=== PATIENT | male | born 1990 | race Caucasian/White ===

== ENCOUNTER 2018-06-05 10:19 | Emergency (ER) | payer SELFPAY ==
--- NOTE | 2018-06-05 11:02 | CT ---
CT OF BRAIN PERFORMED WITHOUT CONTRAST ENHANCEMENT: Date: 06/05/18 HISTORY: Seizure. FINDINGS: The ventricular and cisternal system is within normal limits. There are no signs of intracerebral hem orrhage or extra-axial fluid collections. The mastoid air cells are clear. The visualized portions of the right maxillary sinus is opacified. IMPRESSION: No acute intracranial abnormalities. POS: [facility]
[2018-06-05 11:08] LABS: #Basophils 0.1 thou/uL (0.0-0.2); #Eosinphils 0.2 thou/uL (0.0-0.7); #Lymphocytes 1.9 thou/uL (1.20-3.40); #Monocytes 0.7 thou/uL (0.11-0.59); #Neutrophils 7.2 thou/uL (1.40-6.50); %Basophils 0.5 % (0.0-1.0); %Eosinophils 2.4 % (0.0-10.0); %Monocytes 7.2 % (0.0-10.0); %Neutrophils 70.9 % (42.0-75.0); Hemoglobin 16.3 g/dL (14.0-18.0); Mean Corpuscular HGB CONC 34.7 g/dL (32.0-36.0); Mean Corpuscular Hemoglobin 31.7 pg (27.0-31.0); Mean Corpuscular Volume 91.4 fL (78.0-98.0); Mean Platelet Volume 5.9 fL (7.4-10.4); Platelet Count 256 thou/uL (130-400); RBC Distribution Width 11.4 % (11.5-14.5); Red Blood Cell (RBC) Count 5.14 mill/uL (4.70-6.10); White Blood Cell (WBC) Count 10.1 thou/uL (4.8-10.8)
[2018-06-05 11:25] LABS: Carbamazepine-Tegretol 9.6 ug/mL (4.0-12.0)
[2018-06-05 11:26] LABS: ALT (SGPT) 28 U/L (8-55); AST (SGOT) 17 U/L (5-34); Albumin 4.2 g/dL (3.5-5.0); Alkaline Phosphatase 65 U/L (40-150); Anion Gap 10 mmol/L (10-20); BUN (Urea Nitrogen) 10 mg/dL (8.9-20.6); Bilirubin, Total 0.4 mg/dL (0.2-1.2); Calc. Creatinine Clearance 0 mL/min (70-130); Carbon Dioxide 28 mmol/L (22-29); Chloride 104 mmol/L (98-107); Estimated GFR-MDRD Greater than 90; Globulin 2.7 g/dL (2.4-3.5); Glucose 88 mg/dL (70-105); Protein, Total 6.9 g/dL (6.0-8.3); Sodium 138 mmol/L (136-145)
[2018-06-05 12:05] LABS: Bilirubin Negative (Negative); Blood, Urine Negative (Negative); Clarity CLEAR (Clear); Glucose, Urine (Dipstick) Negative (Negative); Leukocyte Negative (Negative); Nitrite Negative (Negative); Protein, Urine (Dipstick) Negative (Neg-Trace); Specific Gravity, Urine 1.017 (1.002-1.036); Urobilinogen 0.2 mg/dL (0.2-1.0); pH, Urine 6.5 (5.0-9.0)
--- NOTE | 2018-06-05 12:18 | RAD ---
THORACIC SPINE 3 VIEWS: Date: 06/05/18 HISTORY: Seizure 7 days ago. Seizure yesterday and today. Pain. FINDINGS: AP, lateral, and a swimmer's view of the thoracic spine submitted for interpretation. Thoracic spine vertebral body height is maintained. No fracture. Minimal end plate osteophyte formation. IMPRESSION: No fracture. POS: [facility]
--- NOTE | 2018-06-05 12:18 | RAD ---
LUMBAR SPINE SERIES 3 VIEWS: Date: 06/05/17 HISTORY: Back pain, status post seizure. FINDINGS: Vertebral bodies are normal in height. Disc spaces all appear well preserved. Pedicles are intact. No spondylolisthesis. IMPRESSION: No evidence of any acute injury. POS: [facility]
== END 2018-06-05 12:31 | disposition home or self-care (01) ==
LOC: ERS 10:19
DX: R56.9 Unspecified convulsions (principal); M54.5 Low back pain; I10 Essential (primary) hypertension; F17.210 Nicotine dependence, cigarettes, uncomplicated; Z79.899 Other long term (current) drug therapy; Z71.6 Tobacco abuse counseling
CPT/HCPCS: 36415; 70450; 72072; 72100; 80053; 80156; 81003; 85025; 94760; 99406

== ENCOUNTER 2018-10-16 01:29 | Emergency (ER) | payer SELFPAY ==
[2018-10-16 01:49] LABS: #Basophils 0.1 thou/uL (0.0-0.2); #Eosinphils 0.3 thou/uL (0.0-0.7); #Lymphocytes 2.3 thou/uL (1.20-3.40); #Monocytes 0.5 thou/uL (0.11-0.59); #Neutrophils 2.1 thou/uL (1.40-6.50); %Basophils 1.1 % (0.0-1.0); %Eosinophils 5.2 % (0.0-10.0); %Lymphocytes 44.9 % (21.0-51.0); %Monocytes 8.8 % (0.0-10.0); Hemoglobin 15.6 g/dL (14.0-18.0); Mean Corpuscular HGB CONC 35.3 g/dL (32.0-36.0); Mean Corpuscular Hemoglobin 31.4 pg (27.0-31.0); Mean Platelet Volume 6.2 fL (7.4-10.4); Platelet Count 222 thou/uL (130-400); RBC Distribution Width 12.4 % (11.5-14.5); Red Blood Cell (RBC) Count 4.97 mill/uL (4.70-6.10); White Blood Cell (WBC) Count 5.2 thou/uL (4.8-10.8)
[2018-10-16] MEDS ORDERED: Lorazepam 2 MG/ML VIAL ONE (02:03)
[2018-10-16 02:14] LABS: Bilirubin Negative (Negative); Blood, Urine Negative (Negative); Clarity Clear (Clear); Glucose, Urine (Dipstick) Normal (Negative); Leukocyte Negative Leu/uL (Negative); Nitrite Negative (Negative); Protein, Urine (Dipstick) Negative (Neg-Trace); Urobilinogen Normal mg/dL (Less than 2)
[2018-10-16 02:25] LABS: ALT (SGPT) 62 U/L (8-55); AST (SGOT) 40 U/L (5-34); Albumin 4.3 g/dL (3.5-5.0); Alkaline Phosphatase 67 U/L (40-150); Anion Gap 15 mmol/L (10-20); BUN (Urea Nitrogen) 8 mg/dL (8.9-20.6); Bilirubin, Total 0.4 mg/dL (0.2-1.2); CK (CPK) 132 U/L (30-200); Calc. Creatinine Clearance 0 mL/min (70-130); Calcium 9.3 mg/dL (7.8-10.44); Carbon Dioxide 23 mmol/L (22-29); Chloride 105 mmol/L (98-107); Estimated GFR-MDRD Greater than 90; Globulin 3.1 g/dL (2.4-3.5); Glucose 99 mg/dL (70-105); Potassium 4.2 mmol/L (3.5-5.1); Protein, Total 7.4 g/dL (6.0-8.3); Sodium 139 mmol/L (136-145)
[2018-10-16] MEDS ORDERED: Ketorolac Tromethamine 30 MG/ML VIAL ONE (02:45)
== END 2018-10-16 03:53 | disposition home or self-care (01) ==
LOC: ERS 01:29
DX: R56.9 Unspecified convulsions (principal); F17.210 Nicotine dependence, cigarettes, uncomplicated
CPT/HCPCS: 36415; 80053; 80156; 81003; 82550; 84146; 85025; 93005; 96361; 96374; 96375; J1885; J2060

== ENCOUNTER 2019-01-21 11:07 | Emergency (ER) | payer SELFPAY ==
[2019-01-21] MEDS ORDERED: Ketorolac Tromethamine 30 MG/ML VIAL ONE (11:29)
[2019-01-21 11:42] LABS: #Eosinphils 0.2 thou/uL (0.0-0.7); #Lymphocytes 2.1 thou/uL (1.20-3.40); #Monocytes 0.6 thou/uL (0.11-0.59); #Neutrophils 3.9 thou/uL (1.40-6.50); %Basophils 0.5 % (0.0-1.0); %Eosinophils 2.3 % (0.0-10.0); %Monocytes 8.2 % (0.0-10.0); Hemoglobin 16.7 g/dL (14.0-18.0); Mean Corpuscular HGB CONC 33.8 g/dL (32.0-36.0); Mean Corpuscular Hemoglobin 31.4 pg (27.0-31.0); Mean Corpuscular Volume 93.2 fL (78.0-98.0); Mean Platelet Volume 6.2 fL (7.4-10.4); Platelet Count 229 thou/uL (130-400); RBC Distribution Width 11.9 % (11.5-14.5); White Blood Cell (WBC) Count 6.8 thou/uL (4.8-10.8)
[2019-01-21] MEDS ORDERED: carBAMazepine 200 MG TAB PO SCH (12:00)
[2019-01-21 12:07] LABS: Carbamazepine-Tegretol 2.8 ug/mL (4.0-12.0)
[2019-01-21] MEDS ORDERED: Lorazepam 2 MG/ML VIAL ONE (12:07)
[2019-01-21 12:14] LABS: ALT (SGPT) 36 U/L (8-55); AST (SGOT) 21 U/L (5-34); Albumin 4.3 g/dL (3.5-5.0); Alkaline Phosphatase 64 U/L (40-110); Anion Gap 16 mmol/L (10-20); BUN (Urea Nitrogen) 10 mg/dL (8.9-20.6); Bilirubin, Total 0.4 mg/dL (0.2-1.2); CK (CPK) 112 U/L (30-200); Calc. Creatinine Clearance 0 mL/min (70-130); Calcium 9.3 mg/dL (7.8-10.44); Carbon Dioxide 25 mmol/L (22-29); Chloride 105 mmol/L (98-107); Estimated GFR-MDRD 76; Globulin 2.5 g/dL (2.4-3.5); Glucose 108 mg/dL (70-105); Potassium 4.5 mmol/L (3.5-5.1); Protein, Total 6.8 g/dL (6.0-8.3); Sodium 141 mmol/L (136-145)
--- NOTE | 2019-01-21 13:04 | RAD ---
XR Hand Rt 3 View STANDARD HISTORY: Second right metacarpal pain FINDINGS: No bony abnormalities identified.
== END 2019-01-21 13:41 | disposition home or self-care (01) ==
LOC: ERS 11:07
DX: R56.9 Unspecified convulsions (principal); F17.210 Nicotine dependence, cigarettes, uncomplicated
CPT/HCPCS: 36415; 80053; 80156; 82550; 85025; 93005; 96374; 96375; J1885; J2060

== ENCOUNTER 2019-01-25 20:25 | Emergency (ER) | payer SELFPAY ==
[2019-01-25 21:56] LABS: Anion Gap 18 mmol/L (10-20); BUN (Urea Nitrogen) 7 mg/dL (8.9-20.6); Calc. Creatinine Clearance 0 mL/min (70-130); Calcium 9.3 mg/dL (7.8-10.44); Carbon Dioxide 24 mmol/L (22-29); Chloride 101 mmol/L (98-107); Estimated GFR-MDRD Greater than 90; Glucose 85 mg/dL (70-105); Potassium 3.5 mmol/L (3.5-5.1); Sodium 139 mmol/L (136-145)
[2019-01-25] MEDS ORDERED: Ibuprofen 800 MG TAB ONE (21:57)
[2019-01-25 22:02] LABS: Acetaminophen Less than 6.0 mcg/mL (10.0-30.0); Alcohol 24 mg/dL (Less than 10); Salicylate Less than 8.0 mg/dL (15.0-30.0)
[2019-01-25 22:03] LABS: #Eosinphils 0.1 thou/uL (0.0-0.7); #Lymphocytes 2.4 thou/uL (1.20-3.40); #Monocytes 0.6 thou/uL (0.11-0.59); #Neutrophils 4.5 thou/uL (1.40-6.50); %Basophils 0.4 % (0.0-1.0); %Eosinophils 0.7 % (0.0-10.0); %Lymphocytes 31.5 % (21.0-51.0); %Monocytes 8.2 % (0.0-10.0); %Neutrophils 59.3 % (42.0-75.0); Hemoglobin 16.4 g/dL (14.0-18.0); Mean Corpuscular HGB CONC 33.3 g/dL (32.0-36.0); Mean Corpuscular Volume 93.1 fL (78.0-98.0); Mean Platelet Volume 6.5 fL (7.4-10.4); Platelet Count 246 thou/uL (130-400); RBC Distribution Width 11.7 % (11.5-14.5); Red Blood Cell (RBC) Count 5.29 mill/uL (4.70-6.10); White Blood Cell (WBC) Count 7.5 thou/uL (4.8-10.8)
[2019-01-25 22:06] LABS: Bilirubin Negative (Negative); Blood, Urine Negative (Negative); Clarity Clear (Clear); Glucose, Urine (Dipstick) Normal (Negative); Leukocyte Negative Leu/uL (Negative); Nitrite Negative (Negative); Protein, Urine (Dipstick) Negative (Neg-Trace); Urobilinogen Normal mg/dL (Less than 2)
[2019-01-25 22:17] LABS: Amphetamine Not Detected (NotDetected); Barbiturates Screen Not Detected (NotDetected); Benzodiazepine Screen Not Detected (NotDetected); Cocaine Metabolite Screen Detected (NotDetected); Medtox Control Line Valid? VALID (VALID); Medtox Reader # READER 4; Methadone Not Detected (NotDetected); Methamphetamine Not Detected (NotDetected); Opiate Screen Not Detected (NotDetected); Oxycodone Screen Not Detected (NotDetected); Phencyclidine (PCP) Not Detected (NotDetected); THC/Cannabinoid Screen Not Detected (NotDetected); Tricyclic Screen Not Detected (NotDetected)
[2019-01-25 22:45] LABS: ALT (SGPT) 42 U/L (8-55); AST (SGOT) 30 U/L (5-34); Albumin 4.1 g/dL (3.5-5.0); Alkaline Phosphatase 60 U/L (40-110); Anion Gap 14 mmol/L (10-20); BUN (Urea Nitrogen) 6 mg/dL (8.9-20.6); Bilirubin, Total 0.6 mg/dL (0.2-1.2); Calc. Creatinine Clearance 0 mL/min (70-130); Calcium 8.5 mg/dL (7.8-10.44); Carbon Dioxide 28 mmol/L (22-29); Chloride 103 mmol/L (98-107); Estimated GFR-MDRD Greater than 90; Globulin 2.3 g/dL (2.4-3.5); Glucose 83 mg/dL (70-105); Potassium 3.5 mmol/L (3.5-5.1); Protein, Total 6.4 g/dL (6.0-8.3); Sodium 141 mmol/L (136-145)
[2019-01-25 22:46] LABS: Carbamazepine-Tegretol 5.5 ug/mL (4.0-12.0)
[2019-01-26] MEDS ORDERED: carBAMazepine 200 MG TAB PO SCH ×2 (00:30→09:00)
== END 2019-01-26 05:59 ==
LOC: ERS 20:25
DX: F14.10 Cocaine abuse, uncomplicated (principal); R45.851 Suicidal ideations; R56.9 Unspecified convulsions; F17.210 Nicotine dependence, cigarettes, uncomplicated; Z79.899 Other long term (current) drug therapy
CPT/HCPCS: 36415; 80048; 80156; 80306; 80307; 81003; 84146; 85025; 93005; 96360

== ENCOUNTER 2019-04-04 22:58 | Emergency (ER) | payer SELFPAY ==
[2019-04-04 23:27] LABS: #Basophils 0.1 thou/uL (0.0-0.2); #Lymphocytes 2.1 thou/uL (1.20-3.40); #Monocytes 0.4 thou/uL (0.11-0.59); %Basophils 1.2 % (0.0-1.0); %Eosinophils 0.9 % (0.0-10.0); %Lymphocytes 38.2 % (21.0-51.0); %Monocytes 6.4 % (0.0-10.0); %Neutrophils 53.4 % (42.0-75.0); Hemoglobin 17.6 g/dL (14.0-18.0); Mean Corpuscular HGB CONC 34.7 g/dL (32.0-36.0); Mean Corpuscular Hemoglobin 32.2 pg (27.0-31.0); Mean Corpuscular Volume 92.6 fL (78.0-98.0); Mean Platelet Volume 6.2 fL (7.4-10.4); Platelet Count 270 thou/uL (130-400); RBC Distribution Width 11.3 % (11.5-14.5); Red Blood Cell (RBC) Count 5.46 mill/uL (4.70-6.10); White Blood Cell (WBC) Count 5.5 thou/uL (4.8-10.8)
[2019-04-04 23:46] LABS: ALT (SGPT) 44 U/L (8-55); AST (SGOT) 27 U/L (5-34); Acetaminophen Less than 6.0 mcg/mL (10.0-30.0); Albumin 4.4 g/dL (3.5-5.0); Alcohol 113 mg/dL (Less than 10); Alkaline Phosphatase 84 U/L (40-110); Anion Gap 16 mmol/L (10-20); BUN (Urea Nitrogen) 13 mg/dL (8.9-20.6); Calc. Creatinine Clearance 0 mL/min (70-130); Calcium 8.8 mg/dL (7.8-10.44); Carbon Dioxide 27 mmol/L (22-29); Chloride 100 mmol/L (98-107); Estimated GFR-MDRD 84; Globulin 3.1 g/dL (2.4-3.5); Glucose 114 mg/dL (70-105); Protein, Total 7.5 g/dL (6.0-8.3); Salicylate Less than 8.0 mg/dL (15.0-30.0); Sodium 139 mmol/L (136-145)
[2019-04-05 00:31] LABS: Carbamazepine-Tegretol 11.8 ug/mL (4.0-12.0)
[2019-04-05] MEDS ORDERED: Ondansetron PF 4 MG/2 ML Vial ONE ×2 (00:42→05:43)
[2019-04-05] MEDS ORDERED: Pantoprazole 40 MG VIAL ONE (00:42)
[2019-04-05] MEDS ORDERED: carBAMazepine 200 MG TAB PO SCH ×4 (01:00→21:00)
[2019-04-05] MEDS ORDERED: Lorazepam 2 MG/ML VIAL ONE (01:42)
[2019-04-05 01:51] LABS: Bilirubin Negative (Negative); Blood, Urine Negative (Negative); Clarity Clear (Clear); Glucose, Urine (Dipstick) Normal (Negative); Leukocyte Negative Leu/uL (Negative); Nitrite Negative (Negative); Protein, Urine (Dipstick) 10 mg/dL (Neg-Trace); Urobilinogen Normal mg/dL (Less than 2)
[2019-04-05 02:01] LABS: Amphetamine Detected (NotDetected); Barbiturates Screen Not Detected (NotDetected); Benzodiazepine Screen Not Detected (NotDetected); Cocaine Metabolite Screen Detected (NotDetected); Medtox Control Line Valid? VALID (VALID); Medtox Reader # READER 1; Methadone Not Detected (NotDetected); Methamphetamine Detected (NotDetected); Opiate Screen Not Detected (NotDetected); Oxycodone Screen Not Detected (NotDetected); Phencyclidine (PCP) Not Detected (NotDetected); THC/Cannabinoid Screen Not Detected (NotDetected); Tricyclic Screen Not Detected (NotDetected)
[2019-04-05] MEDS ORDERED: Acetaminophen 500 MG TAB ONE ×2 (04:38→19:55)
[2019-04-05] MEDS ORDERED: Diazepam 5 MG TAB ONE ×4 (05:53→19:55)
[2019-04-05] MEDS ORDERED: cloNIDine 0.1 MG TAB ONE (09:57)
[2019-04-06] MEDS ORDERED: Thiamine 100 MG TAB ONE (03:31)
[2019-04-06] MEDS ORDERED: hydrOXYzine 25 MG TAB ONE ×2 (03:31→23:54)
[2019-04-06] MEDS ORDERED: Folic Acid 1 MG TAB ONE (03:31)
[2019-04-06] MEDS ORDERED: Magnesium Oxide 400 MG TAB PO SCH (03:45)
[2019-04-06] MEDS ORDERED: Multivitamin W/ Minerals 1 TAB PO SCH (03:45)
[2019-04-06] MEDS ORDERED: cloNIDine 0.1 MG TAB ONE (08:26)
[2019-04-06] MEDS ORDERED: Ketorolac Tromethamine 30 MG/ML VIAL ONE (21:59)
[2019-04-06] MEDS ORDERED: Diazepam 5 MG TAB ONE (23:54)
[2019-04-07] MEDS ORDERED: Diazepam 5 MG TAB PO SCH (08:00)
[2019-04-07] MEDS ORDERED: hydrOXYzine 25 MG TAB PO SCH (08:00)
[2019-04-07] MEDS ORDERED: Thiamine 100 MG TAB PO SCH (08:00)
[2019-04-07] MEDS ORDERED: Ketorolac Tromethamine 30 MG/ML VIAL IM SCH (08:00)
[2019-04-07] MEDS ORDERED: Folic Acid 1 MG TAB PO SCH (08:00)
[2019-04-07] MEDS ORDERED: Magnesium Oxide 400 MG TAB PO SCH ×2 (08:15→12:30)
[2019-04-07] MEDS ORDERED: cloNIDine 0.1 MG TAB PO SCH (09:00)
[2019-04-07] MEDS ORDERED: hydrOXYzine 25 MG TAB ONE (09:12)
[2019-04-07] MEDS ORDERED: cloNIDine 0.1 MG TAB ONE (09:12)
[2019-04-07] MEDS ORDERED: Acetaminophen 500 MG TAB ONE ×2 (09:22→19:58)
[2019-04-07] MEDS ORDERED: Thiamine 100 MG TAB ONE (12:14)
[2019-04-07] MEDS ORDERED: Folic Acid 1 MG TAB ONE (12:14)
[2019-04-07] MEDS ORDERED: Multivitamin W/ Minerals 1 TAB PO SCH (12:30)
[2019-04-07] MEDS ORDERED: Ibuprofen 200 MG TAB ONE (19:58)
[2019-04-08] MEDS ORDERED: Acetaminophen 500 MG TAB ONE ×3 (02:55→14:22)
[2019-04-08] MEDS ORDERED: Thiamine 100 MG TAB PO SCH (07:45)
[2019-04-08] MEDS ORDERED: Folic Acid 1 MG TAB PO SCH (07:45)
[2019-04-08] MEDS ORDERED: Multivit, Therapeutic 1 TAB PO SCH (07:45)
[2019-04-08] MEDS ORDERED: Magnesium Oxide 400 MG TAB PO SCH (07:45)
[2019-04-08] MEDS ORDERED: Folic Acid 1 MG TAB ONE (08:30)
[2019-04-08] MEDS ORDERED: Thiamine 100 MG TAB ONE (08:30)
[2019-04-08] MEDS ORDERED: carBAMazepine 200 MG TAB PO SCH (09:00)
[2019-04-08] MEDS ORDERED: Benzocaine (Dental) 20% 10 gm Tube TOP SCH (12:00)
[2019-04-08] MEDS ORDERED: Nicotine 14 MG PATCH TOP SCH (14:00)
[2019-04-08] MEDS ORDERED: traZODone HCl 50 MG TAB ONE (20:34)
[2019-04-09] MEDS ORDERED: Acetaminophen 500 MG TAB ONE (04:41)
[2019-04-09] MEDS ORDERED: Ibuprofen 200 MG TAB ONE (05:59)
[2019-04-09] MEDS ORDERED: cloNIDine 0.1 MG TAB ONE (08:31)
[2019-04-09] MEDS ORDERED: Multivitamin W/ Minerals 1 TAB PO SCH (09:00)
[2019-04-09] MEDS ORDERED: Magnesium Oxide 400 MG TAB PO SCH (09:00)
[2019-04-09] MEDS ORDERED: Thiamine 100 MG TAB PO SCH (09:00)
[2019-04-09] MEDS ORDERED: Acetaminophen 325 MG TAB ONE (12:00)
[2019-04-09] MEDS ORDERED: Nicotine 14 MG PATCH ONE (12:02)
== END 2019-04-09 14:46 ==
LOC: ERS 22:58
DX: F19.10 Other psychoactive substance abuse, uncomplicated (principal); R45.851 Suicidal ideations; F31.9 Bipolar disorder, unspecified; F41.9 Anxiety disorder, unspecified; F17.290 Nicotine dependence, other tobacco product, uncomplicated; Z79.899 Other long term (current) drug therapy; Z71.6 Tobacco abuse counseling
CPT/HCPCS: 36415; 80053; 80156; 80306; 80307; 81003; 84443; 85025; 93005; 94760; 96361; 96372; 96374; 96375; 99406; C9113; J2060; J2405

== ENCOUNTER 2019-06-03 08:14 | Emergency (ER) | payer SELFPAY ==
[2019-06-03] MEDS ORDERED: Ibuprofen 200 MG TAB ONE (08:33)
[2019-06-03] MEDS ORDERED: Lorazepam 2 MG/ML VIAL ONE (08:33)
[2019-06-03] MEDS ORDERED: carBAMazepine 200 MG TAB PO SCH (09:00)
== END 2019-06-03 13:05 | disposition home or self-care (01) ==
LOC: ERS 08:14
DX: R56.9 Unspecified convulsions (principal); F41.9 Anxiety disorder, unspecified; F31.9 Bipolar disorder, unspecified; F17.290 Nicotine dependence, other tobacco product, uncomplicated; Z79.899 Other long term (current) drug therapy
CPT/HCPCS: 96374; J2060